=== PATIENT | male | born 1955 | race Caucasian/White ===

== ENCOUNTER 2018-09-28 09:30 | Day surgery (SDC) | payer MEDICARE, BC ==
[~2018-09-28] VITALS: Ht 182.9 cm; Wt 99.1 kg
[2018-09-28 09:51] LABS: BASOPHILS 0.4 % (0-2); EOSINOPHILS 1.1 % (0-7); HEMATOCRIT 47.1 % (42.0-54.0); HEMOGLOBIN 17.2 g/dL (13.5-17.5); IMMATURE GRANULOCYTES 0.2 % (0-5); LYMPHOCYTES 25.5 % (15-50); MCHC 36.5 g/dL (31.0-37.0); MEAN PLATELET VOLUME 11.4 fL (7.4-10.4); MONOCYTES 7.4 % (2-11); NEUTROPHILS 65.4 % (40-80); PLATELET COUNT 138 10x3/uL (130-400); RBC 5.54 10x6/uL (4.20-6.10); RDW 13.7 % (11.5-14.5); WBC 5.6 10x3/uL (4.8-10.8)
[2018-09-28 10:00] LABS: ANION GAP 14.8 mmol/L (8-16); CALCIUM 9.2 mg/dL (8.5-10.1); CARBON DIOXIDE 25.7 mmol/L (21.0-32.0); CREATININE - SERUM 1.2 mg/dL (0.6-1.3); POTASSIUM - SERUM 3.5 mmol/L (3.5-5.1)
[2018-09-28] MEDS ORDERED: PAXIL20 MG PO (10:24)
[2018-09-28] MEDS ORDERED: TENORMIN100 MG PO (10:26)
[2018-09-28] MEDS ORDERED: FENOFIBRATE160 MG PO (10:26)
[2018-09-28] MEDS ORDERED: BAYER CHEWABLE81 MG PO (10:27)
[2018-09-28] MEDS ORDERED: GLUCOPHAGE500 MG PO (10:27)
[2018-09-28] MEDS ORDERED: IBUPROFEN800 MG PO (10:28)
[2018-09-28] MEDS ORDERED: ZYRTEC10 MG PO (10:29)
[2018-09-28 10:38] VITALS: BP 120/79; Ht 182.9 cm; Wt 99.1 kg
--- NOTE | 2018-09-28 13:41 | HP ---
PATIENT: GREGG HARTMANN MEDICAL RECORD: [id number] ACCOUNT: [id number] LOCATION:DJackyOPS : 51 ADMISSION DATE: 09/28/18 PCP: SAHARA CORTES MD HISTORY AND PHYSICAL EXAMINATION HISTORY OF PRESENT ILLNESS: The patient has a number of colon polyps. He underwent colonoscopy back in May. The patient was found to have a sessile 3.5 cm nonbleeding polyp at the hepatic flexure. Cold biopsies were performed, Susan ink tattooing was performed. There were also 3 sessile nonbleeding polyps in the ascending colon and hot biopsy forceps polypectomies were performed. I am going to plan for a colonoscopy, possible endoscopic mucosal resection, possible polypectomy with the argon plasma machine oiler. HOME MEDICATIONS: Please see the nursing list. ALLERGIES: No known drug allergies. SOCIAL HISTORY: Nonsmoker. PAST MEDICAL AND SURGICAL HISTORY: Hypertension, diabetes, arthritis, history of left ankle surgery. PHYSICAL EXAMINATION: GENERAL: The patient does not appear acutely ill. He does not appear chronically ill. VITAL SIGNS: Reviewed. EARS: External ears appear normal. EYES: Extraocular movements are intact. NECK: Trachea is midline. CHEST: No intercostal retractions. PULMONARY: Nonlabored, no stridor. IMPRESSION: History of multiple colon polyps as described above. PLAN: Colonoscopy and endoscopic therapy. TRANSINT:[id number] Voice Confirmation ID: [id number] DOCUMENT ID: [id number] DARIEN DE LA ROSA MD at 1341 CC: SAHARA CORTES MD and SEEMA DRIVER [id number] DICTATION DATE: 09/28/18 1239 PLASTICS REPAIRER: 09/28/18 1304 [id number] [place] [id number]
--- NOTE | 2018-09-28 15:08 | NUR ---
1430 UP TO BATHROOM. VOIDED. AMBULATORY WITHOUT DIFFICULTY. IV DC'ED WITH CATH INTACT BY Foreign GARCIA R.N. DRESSING. Espinoza ALDANA R.N. 1500 DRESSED. AWAKE & ALERT. GVIEN DISCHARGE INFORMATION INCLUDING: RX: FLAGYL, MED REC., SHEET LISTING NSAIDS TO AVOID, POST ENDOSCOPIC PROCEDURES D/C INSTRUCTION SHEET. PT & VOICED UNDERSTANDING. TO PRIVATE CAR PER WHEELCHAIR BY VOLUNTEER. HOME WITH MRS. ASMITA HARTMANN. Espinoza ALDANA R.N.
--- NOTE | 2018-09-28 16:23 | OP ---
PATIENT NAME: GREGG HARTMANN MEDICAL RECORD: [id number] :51 LOCATION:D.OPS ADMISSION DATE: SURGEON: DARIEN DE LA ROSA MD DATE OF OPERATION: 09/28/2018 PREOPERATIVE DIAGNOSIS: History of hepatic flexure polyp, which has been tattooed. POSTOPERATIVE DIAGNOSIS: History of hepatic flexure polyp, which has been tattooed, with secondary polyp involving the ascending colon at the hepatic flexure. PROCEDURES: 1. Total colonoscopy to cecum. 2. Polypectomy utilizing endoscopic mucosal resection and placement of 2 endoscopic clips. 3. Hot biopsy forceps polypectomy times 1. SURGEON: Darien De La Rosa MD FOOD SERVICE ORDER CLERK: None. BLOOD LOSS: Minimal. ANESTHESIA: IV sedation. COMPLICATIONS: None. The risks, possible complications, and alternatives to the procedure were explained to the patient. He elects to proceed. ENDOSCOPIC COURSE: The patient was conveyed to the endoscopy suite electively on 09/28/2018. IV sedation was induced by the anesthesia staff. The patient was placed in the [place] position. A digital rectal examination was performed. A colonoscope was inserted through the anus. It was easily advanced to the cecum. Upon withdrawal, I irrigated and aspirated extensively. The prep was marginal. I identified a tattoo. Next to the tattoo, there was one hepatic flexure polyp, which was a 9-mm sessile polyp and was removed in its entirety utilizing hot biopsy forceps polypectomy technique. There was a secondary polyp that was on the back side of a fold. I advanced sclerotherapy needle. I performed a submucosal injection of [place] underneath the polyp. This caused the polyp to raise. I advanced an endoscopic snare. I then snared off the polyp utilizing the coagulation setting and then the cut setting. A tiny bit of residual polypoid tissue was ablated utilizing the argon plasma medical stenographer with the right colon setting in the forced mode. For hemostasis, 2 endoscopic clips were placed at the polypectomy site. The polyp was then grasped with an endoscopic retrieval net and was withdrawn out through the anus. The pullback was greater than a 25-minute pullback. I dragged the folds. A combination of normal imaging and narrow band imaging were utilized during this procedure. OPERATIVE REPORT [id number] GREGG HARTMANN TRANSINT:[id number] Voice Confirmation ID: [id number] DOCUMENT ID: [id number] DARIEN DE LA ROSA MD at 1623 CC: SAHARA CORTES MD and SEEMA DRIVER [id number] DICTATION DATE: 09/28/18 1338 DEVOPS DEVELOPER: 09/28/18 1403 [facility] 09/28/18 [facility] [address] [place] [address]
== END 2018-09-28 15:00 | disposition home or self-care (01) ==
LOC: D.OPS 09:30
PROVIDERS: Anesthesiology
DX: D12.3 Benign neoplasm of transverse colon (principal); I10 Essential (primary) hypertension; E11.9 Type 2 diabetes mellitus without complications; M19.90 Unspecified osteoarthritis, unspecified site; Z86.010 Personal history of colon polyps; Z01.812 Encounter for preprocedural laboratory examination

== ENCOUNTER 2018-11-20 19:46 | Emergency (ER) | payer MEDICARE, BC ==
[~2018-11-20] VITALS: Ht 182.9 cm; Wt 102.1 kg
[~2018-11-20 19:46] MED LIST: BAYER CHEWABLE81 MG PO; FENOFIBRATE160 MG PO; GLUCOPHAGE500 MG PO; IBUPROFEN800 MG PO; PAXIL20 MG PO; TENORMIN100 MG PO; ZYRTEC10 MG PO
[2018-11-20 19:52] VITALS: Ht 182.9 cm; Wt 102.1 kg
[2018-11-20] MEDS ORDERED: FLUTICASONE PRO16 GM NASAL (19:54)
[2018-11-20] MEDS ORDERED: HYDROCODON-ACE1 EAC7 PO (23:46)
[2018-11-20] MEDS ORDERED: CLEOCIN HCL300 MG PO (23:46)
[2018-11-20 23:56] VITALS: BP 157/78
== END 2018-11-20 23:56 | disposition home or self-care (01) ==
LOC: D.ER 19:46
DX: S01.81XA Laceration without foreign body of other part of head, initial encounter (principal); W45.8XXA Other foreign body or object entering through skin, initial encounter; Y93.89 Activity, other specified; Y92.89 Other specified places as the place of occurrence of the external cause

== ENCOUNTER → 2019-07-04 07:58 | Outpatient (CLI) | payer MEDICARE, BC ==
[2018-11-20 19:52] VITALS: BMI 29.6
[~2019-07-04 07:58] MED LIST changes: +CLEOCIN HCL300 MG PO; +FLUTICASONE PRO16 GM NASAL; +HYDROCODON-ACE1 EAC7 PO
== END | disposition home or self-care (01) ==
LOC: D.MRI 07:58
PROVIDERS: ATTEND Orthopaedic Surgery
DX: M23.307 Other meniscus derangements, unspecified meniscus, left knee (principal)

== ENCOUNTER → 2019-08-02 09:00 | Outpatient (CLI) | payer MEDICARE, BC ==
[2018-11-20 19:52] VITALS: BMI 29.6
--- NOTE | ~2019-08-02 | EC ---
PATIENT:GREGG HARTMANN DATE OF SERVICE: 08/02/19 SEX: M MEDICAL RECORD: [id number] DATE OF : 51 LOCATION:[facility] AGE OF PATIENT: 64 ADMISSION DATE: 08/02/19 REFERRING PHYSICIAN: INTERPRETING PHYSICIAN: NIKOS MUÑOZ MD ECHOCARDIOGRAM REPORT ECHO CHARGES 4 ECHO COMPLETE Date: 08/02/19 CLINICAL DIAGNOSIS: HTN HX OF TRICUSPID/MITRAL REGURG ECHOCARDIOGRAPHIC MEASUREMENTS (adult normal given) AC root (d.<3.7cm) 3.5 cm LV Septum d (<1.2 cm> 1.4 cm Valve Excursion 2.2 cm LV Septum (systole) 1.5 cm Left Atria (s.<4.0cm> 4.8 cm LVPW d(<1.2cm) 1.6 cm RV (d.<2.3cm) 4.0 cm LVPW (sytole) 1.8 cm LV diastole(<5.6CM) 5.3 cm MV E-F(>70mm/sec) cm LV systole 3.1 cm LVOT Diameter 2.1 cm MV exc.(>10mm) 2.0 cm Est.ejection fraction (50-75%) % DOPPLER: LVIT cm/sec A 53.0 cm/sec E 81.0 cm/sec LA cm/sec RVSP 43 mmHg LVOT 97 cm/sec AOP1/2T m/s Asc. Ao 115 cm/sec RVOT 58 cm/sec RA cm/sec PA 83 cm/sec AV Gradient Peak 5.33 mmHg AV Mean 2.42 mmHg AV Area 2.8 cm MV Gradient Peak 4.49 mmHg MV Mean 1.09 mmHg MV Area cm COMMENTS: Patient Registrar: 2 PALOMO ROBERSON Density Control Puncher: 3 Dr. Cates TAPE# PACS Pericardial Effusion N DATE OF SERVICE: Adequate 2D, Color Flow, Spectral Doppler and M-Mode LVH is present. LV internal dimensions are normal. Wall motion is normal. EF is greater than or equal to 55%. Aortic valve is tricuspid. No evidence of stenosis by Doppler interrogation. The left atrium dilated at 4.8 cm. Mitral valve shows no prolapse. Mild MR. Right sided chambers are grossly normal. Mild TR. ECHOCARDIOGRAM REPORT [id number] GREGG HARTMANN TRANSINT:[id number] Voice Confirmation ID: [id number] DOCUMENT ID: [id number] NIKOS MUÑOZ MD CC: [id number] DICTATION DATE: 08/03/19 1418 BEE WORKER: 08/03/19 1846 DEP CLI 08/02/19 [place] [id number] [place] [id number]
== END | disposition home or self-care (01) ==
LOC: D.HCCECHO 09:00
PROVIDERS: ATTEND Internal Medicine Interventional Cardiology
DX: I10 Essential (primary) hypertension (principal)